=== PATIENT | female | born 1960 | race Caucasian/White ===

== ENCOUNTER 2019-06-07 11:32 | Emergency (ER) | payer OTHER ==
[2019-06-07 11:41] VITALS: BMI 22.6
--- NOTE | 2019-06-07 12:50 | PDOC ---
History of Present Illness - General Chief Complaint: Blood Pressure Problem Stated Complaint: HEADACHES VOMITING Time Seen by Provider: 06/07/19 12:05 History Source: Patient Exam Limitations: No Limitations - History of Present Illness Initial Comments: HPI: 59 y/o female presenting to [facility] ER complaining of diffuse bilateral headache radiating from the forehead to the neck. Woke the pt from sleep this morning, and has continued to worsen in intensity. No photo or phonophobia. No change in vision. Denies trauma to the head or neck. Denies a history of chronic headaches , but pt describes a similar headache 7 years ago that improved after undergoing "a needle in the spine" at [place]. Experienced a change in vision with that episode. Pt is unable to recall the diagnosis made at that time. Was not placed on any maintenance medications. Endorses nausea without vomiting. Did not take any OTC pain medication prior to arrival. Medical Hx: - HTN Review of Systems: In addition to that documented in the HPI above, the additional ROS was obtained : Constitutional- Denies fevers or chills Head- Denies vision or hearing changes ENMT- Denies sore throat CV- Denies chest pain Resp- Denies SOB GI- Denies vomiting or diarrhea - Denies painful urination MSK- Denies recent trauma Skin- Denies new rashes Neuro- Denies difficulty walking, new numbness, or tingling Endocrine- Denies polyuria Heme- Denies bleeding or bruising Physical Examination: Vital signs and nursing notes reviewed. Constitutional- Well-developed, well-nourished adult female in no acute distress but mild obvious discomfort. Found semi-fowlers on hospital bed. Head- Normocephalic. No obvious external signs of trauma. No tenderness to palpation. Eyes- Pupils 3mm and PERRL bilaterally. EOMI. Sclerae white. Conjunctiva moist and not injected. Ears- Hearing grossly intact. Nose- No nasal discharge. Neck- Supple, trachea is midline. No c-spine tenderness. Cardiovascular / Chest- Regular rate and regular rhythm. No murmur, rubs, clicks , or gallops. Peripheral pulses- radial pulses full. Respiratory- Breathing unlabored. Equal chest rise and fall. Clear to auscultation bilaterally. No stridor, no wheezing, no rhonchi. Gastrointestinal- abdomen is soft, non-tender, non-distended. Neuro- Alert and oriented x4. Moving all four extremities spontaneously. No facial asymmetry. No slurred speech. No focal deficits. Sensation to all four extremities intact. No nuchal rigidity. Skin- Warm, dry, and intact. Psych- Affect- appropriate. Mood- normal. Speech was non-labored, non- pressured. MDM: 59 y/o female presenting with worsening diffuse headache in setting of possible pseudotumor cerebri diagnosis without active treatment. Afebrile. Vitals unremarkable for hypotension or tachycardia. Physical exam as described above. Low suspicion for meningitis without infectious symptoms. Low suspicion for SAH , but will eval w/ HCT. Symptoms started within 6 hours. D/D also includes but not limited to pseudotumor cerebri vs tension headache. Ordered Tylenol and Reglan for symptom relief. HCT unremarkable for evidence of hemorrhage. Noted mild ventricular enlargement that was not noted on prior HCT dated 18 July 2010. Pt reassessed and reports her headache has almost completely resolved. Discussed results of todays visit, as well as need for lumbar puncture to measure opening pressure. Pt declined the procedure. Further discussed risks and benefits of the procedure, and possibility of blindness as complication of untreated pseudotumor cerebri. Pt again declined. Pt attempted unsuccessfully to obtain the records from [facility]. Answered all questions. Provided return precautions. Pt expressed verbal understanding and agreement with plan to discharge home with outpatient neurology follow up. Provided copies of todays results and neuro clinic referral. Tavares Rodas M.D., PGY2 Emergency Medicine Resident Past History - Past Medical History Allergies/Adverse Reactions: Allergies Allergy/AdvReac Type Severity Reaction Status Date / Time No Known Allergies Allergy Verified 06/07/19 11:41 Home Medications: Ambulatory Orders Atorvastatin Ca [Lipitor] 40 mg PO DAILY 06/07/19 Metoprolol Succinate [Toprol Xl] 50 mg PO DAILY 06/07/19 COPD: No HTN: Yes - Psycho Social/Smoking Cessation Hx Smoking Status: No Smoking History: Never smoked Number of Cigarettes Smoked Daily: 0 Information on smoking cessation initiated: No Hx Alcohol Use: No Drug/Substance Use Hx: No *Physical Exam - Vital Signs Last Vital Signs Temp Pulse Resp BP Pulse Ox 97.6 F 60 19 144/93 98 06/07/19 11:40 06/07/19 11:40 06/07/19 11:40 06/07/19 11:40 06/07/19 11:40 ED Treatment Course - LABORATORY CBC & Chemistry Diagram: 06/07/19 12:35 06/07/19 12:35 Discharge - Discharge Information Problems reviewed: Yes Clinical Impression/Diagnosis: Headache Qualifiers: Headache type: unspecified Headache chronicity pattern: acute headache Intractability: not intractable Qualified Code(s): R51 - Headache Condition: Improved Disposition: HOME - Admission No - Follow up/Referral Referrals: Mick Rebolledo MD [Primary Care Provider] - Sudhir Omalley MD [Staff Physician] - - Patient Discharge Instructions Patient Printed Discharge Instructions: DI for Headache Additional Instructions: You were seen today for a headache. Your symptoms improved after receiving Tylenol and Reglan. Your head CT and blood work were normal today. Your symptoms may be related to a disorder called Pseudotumor Cerebri. You declined to have a lumbar puncture performed to adequately test for this disorder. You may have this disorder based on your description of events at [facility] 7 years ago. A halfway complication of not treating this disorder is blindness. YOU NEED TO DISCUSS THIS WITH A NEUROLOGIST SOON POSSIBLE. You can take over the counter Tylenol or Advil as needed for pain. Take as directed on the package insert. Do not exceed the recommended dosage. Be sure to stay well hydrated over the next several days. Follow up with a neurologist as soon as possible. I have entered a referral for you to see Dr. Omalley. You will need to call to make an appointment. The number is included in this packet. A copy of todays results are attached to this packet. Take it to the appointment so the doctor can review them. You can also follow up with your primary care doctor. You will need to call to make an appointment. The number is included in this packet. A copy of todays results are attached to this packet. Take it to the appointment so your doctor can review them. Go to the nearest emergency department if your condition worsens or you feel like you need additional emergency evaluation. Print Language: BURUNDIAN - Post Discharge Activity Work/Back to School Note: Back to Work
[2019-06-07] MEDS ORDERED: ACETAMINOPHEN 325 MG TABLET (FP) PO ONE (12:51)
[2019-06-07] MEDS ORDERED: METOCLOPRAMIDE HCL INJECTION 10 MG/2 ML VIAL IVPUSH ONE (12:51)
[2019-06-07] MEDS ORDERED: METOCLOPRAMIDE HCL INJECTION 10 MG/2 ML VIAL ONE (12:59)
[2019-06-07] MEDS ORDERED: ACETAMINOPHEN 325 MG TABLET (FP) ONE (12:59)
--- NOTE | 2019-06-07 14:01 | PDOC ---
Documentation entered by Michelle Forrester SCRIBE, acting as scribe for Roberto Carlos Severino MD. Roberto Carlos Severino MD: This documentation has been prepared by the Usama fitzpatrick Adrianna, SCRIBE, under my direction and personally reviewed by me in its entirety. I confirm that the documentation accurately reflects all work, treatment, procedures, and medical decision making performed by me. Attending Attestation - Resident Resident Name: RodasTavares - ED Attending Attestation I have performed the following: I have examined & evaluated the patient, The case was reviewed & discussed with the resident, I agree w/resident's findings & plan, Exceptions are as noted - HPI HPI: The patient is a 59 year old female, with a significant PMH of pseudotumor cerebri and HTN, who presents to the ED for evaluation of headache since this morning. Patient complains of diffuse bilateral headache that radiates into her forehead and her neck. She endorses associated nausea and vomit. Denies changes in vision, trauma to the head, or photophobia. Allergies: NKA, NIKDA Surgical History: None reported Social History: No toxic habits - Physicial Exam PE: 06/07/19 13:57 EXAMINATION CONSTITUTIONAL: Awake and alert, well-nourished, in mild distress HEAD: Normocephalic; atraumatic EYES: PERRL; EOM intact; No nystagmus NECK: Supple; non-tender; no cervical lymphadenopathy NEURO: Cranial nerves II through XII grossly intact; motor is five 5 x 4; gait is stable. - Medical Decision Making 06/07/19 14:00 Patient is 59-year-old female with history of pseudotumor cerebri (currently not on Diamox), presents with a diffuse headache associated with nausea and vomiting but without associated photo/phonophobia. In the ER, patient is afebrile, nontoxic-appearing, with no evidence of meningismus. Differential diagnosis includes intracerebral hemorrhage versus migraine versus worsening ICP versus tension headache. Will administer pain meds, will obtain CT of head to rule out intracranial hemorrhage. Will consider LP. Will reassess.
[2019-06-07 14:59] LABS: BASO % 0.6 % (0-2.0); EOS % 0.5 % (0-4.5); HEMATOCRIT 35.8 % (32.4-45.2); HEMOGLOBIN 11.8 GM/dL (10.7-15.3); LYMPH % 20.6 % (8-40); MCH 27.9 pg (25.7-33.7); MCHC 32.9 g/dl (32.0-36.0); MEAN CELL VOLUME 84.9 fl (80-96); MEAN PLT VOLUME 12.2 fl (7.5-11.1); MONO % 4.1 % (3.8-10.2); NEUT % 74.2 % (42.8-82.8); PLATELET COUNT 253 K/MM3 (134-434); RBC 4.22 M/mm3 (3.60-5.2); RDW 13.7 % (11.6-15.6); WHITE BLOOD COUNT 8.5 K/mm3 (4.0-10.0)
[2019-06-07 15:11] LABS: ALBUMIN 3.4 g/dl (3.4-5.0); BILIRUBIN,TOTAL 0.3 mg/dL (0.2-1); CALCIUM 9.2 mg/dL (8.5-10.1); CREATININE 0.8 mg/dL (0.55-1.3); POTASSIUM 4.1 mmol/L (3.5-5.1); TOT PROT 7.6 g/dl (6.4-8.2)
[2019-06-07 15:21] LABS: INR 0.94 (0.83-1.09); PROTHROMBIN TIME (PATIENT) 11.1 SEC (9.7-13.0)
[2019-06-07 15:24] LABS: ACTIVATED PTT 34.2 SECONDS (25.2-36.5)
[2019-06-07 15:56] VITALS: BP 108/70; PULSE 54; TEMP 98
--- NOTE | 2019-06-13 10:35 | EKG ---
Test Reason : Blood Pressure : / mmHG Vent. Rate : 059 BPM Atrial Rate : 059 BPM P-R Int : 174 ms QRS Dur : 070 ms QT Int : 432 ms P-R-T Axes : 055 -13 014 degrees QTc Int : 427 ms SINUS BRADYCARDIA OTHERWISE NORMAL ECG WHEN COMPARED WITH ECG OF 10-NOV-2004 09:21, NO SIGNIFICANT CHANGE WAS FOUND Confirmed by Adam Mary MD ([id number]) on 06/13/2019 10:34:47 AM Referred By: Confirmed By:Adam Mary MD
== END 2019-06-07 16:26 | disposition home or self-care (01) ==
LOC: JER 11:32 → SUPCPDRO 11:32 → JER 16:26
PROC: 3E033GC Introduction of Other Therapeutic Substance into Peripheral Vein, Percutaneous Approach (ICD-10-PCS; principal; 2019-06-07)
DX: R51 Headache (principal); I10 Essential (primary) hypertension
CPT/HCPCS: 36415; 70450-TC; 80053; 85025; 85610; 85730; 93005; 93010; 99285-25

== ENCOUNTER 2019-10-23 14:07 | Observation (INO) | payer OTHER ==
[2019-10-23 14:34] VITALS: BMI 21.6
--- NOTE | 2019-10-23 14:34 | PDOC ---
Rapid Medical Evaluation Chief Complaint: Nausea/Vomiting Time Seen by Provider: 10/23/19 14:30 Medical Evaluation: Allergies Allergy/AdvReac Type Severity Reaction Status Date / Time No Known Allergies Allergy Verified 06/07/19 11:41 10/23/19 14:31 I have performed a brief in-person evaluation of this patient. The patient presents with a chief complaint of: sudden onset of N/V , dizziness and sweats since 30mins ago Pertinent physical exam findings: patient weak actively vomiting in waiting room I have ordered the following: EKG, cmp, CBC, cardiac profile The patient will proceed to the ED for further evaluation. Discharge Disposition - Diagnosis Dizziness, Nausea & vomiting - Discharge Dispostion Condition at time of disposition: Fair - Referrals - Patient Instructions - Post Discharge Activity
[2019-10-23] MEDS ORDERED: SODIUM CHLORIDE 1,000 ML IV STA (14:35)
[2019-10-23 15:28] LABS: BASO % 0.4 % (0-2.0); EOS % 0.5 % (0-4.5); HEMATOCRIT 36.6 % (32.4-45.2); HEMOGLOBIN 11.8 GM/dL (10.7-15.3); LYMPH % 21.2 % (8-40); MCH 27.4 pg (25.7-33.7); MCHC 32.2 g/dl (32.0-36.0); MEAN PLT VOLUME 11.1 fl (7.5-11.1); MONO % 4.1 % (3.8-10.2); NEUT % 73.8 % (42.8-82.8); PLATELET COUNT 248 K/MM3 (134-434); RDW 14.5 % (11.6-15.6); WHITE BLOOD COUNT 9.3 K/mm3 (4.0-10.0)
--- NOTE | 2019-10-23 15:38 | PDOC ---
History of Present Illness - General Chief Complaint: Nausea/Vomiting Stated Complaint: NAUSEA/VOMITING Time Seen by Provider: 10/23/19 14:30 History Source: Patient, Family Exam Limitations: No Limitations - History of Present Illness Initial Comments: 10/23/19 15:37 59F PMH HTN, HLD, polymyositis presenting with sudden onset dizziness, diaphoresis, weakness, nausea, and vomiting shortly after getting out of car. No LOC. Endorses mild epigastric pain x 3 days. Denies f/c, cp, palpitations, headache, changes in vision/hearing, sob, cough, sore throat, runny nose. Endorses eating breakfast and having adequate fluid intake. NKDA. On metoprolol and zetia w/o recent changes in dosage. Denies etoh, tobacco, illicit drugs. Past History - Medical History Allergies/Adverse Reactions: Allergies Allergy/AdvReac Type Severity Reaction Status Date / Time No Known Allergies Allergy Verified 06/07/19 11:41 Home Medications: Ambulatory Orders Atorvastatin Ca [Lipitor] 40 mg PO DAILY 06/07/19 Metoprolol Succinate [Toprol Xl] 50 mg PO DAILY 06/07/19 COPD: No HTN: Yes - Psycho-Social/Smoking History Smoking Status: No Smoking History: Never smoked Have you smoked in the past 12 months: No Number of Cigarettes Smoked Daily: 0 Information on smoking cessation initiated: No - Substance Abuse Hx (Audit-C & DAST Scrn) How often the patient has a drink containing alcohol: Never Score: In Men: 4 or > Positive; In Women: 3 or > Positive: 0 Screen Result (Pos requires Nsg. Audit-10AR): Negative In the last yr the pt used illegal drug/Rx for NonMed reason: No Score: Yes response is considered Positive: 0 Screen Result (Positive result requires Nsg. DAST-10): Negative Review of Systems - Review of Systems Able to Perform ROS?: Yes Comments:: 10/24/19 00:17 CONSTITUTIONAL: Denies F / C HEENT: endorses dizziness. Denies headache, changes in vision / hearing, diplopia, blurry vision, sore throat, rhinorrhea RESP: Denies SOB, cough, orthopnea, FREDERICK CARD: Denies chest pain, palpitations GI: endorses epigastric discomfort. endorses n/v. Denies diarrhea, abdominal pain, bloody stool, inability to tolerate PO : Denies dysuria, hematuria, frequency NEURO: Denies numbness, tingling, weakness MSK: Denies neck or back pain SKIN: Denies rashes *Physical Exam - Vital Signs Last Vital Signs Temp Pulse Resp BP Pulse Ox 97.3 F L 55 L 17 116/74 90 L 10/23/19 14:08 10/23/19 14:08 10/23/19 14:08 10/23/19 14:08 10/23/19 14:08 - Physical Exam 10/24/19 00:17 GEN: fatigued but NAD. AAOx3. HEENT: NC/AT, EOMI. No facial asymmetry. Normal voice. Supple neck w/ FROM. CV: S1/S2, RRR, no m/r/g LUNG: SaO2 bernard 89% on RA, bibasilar crackles, no wheezes GI: Mild epigastric tenderness o/w soft, ndnt, +BS, no guarding, no rebound. MSK: 2+ distal pulses. No LE edema. No obvious deformities of all extremities. SKIN: Warm, dry, no rashes appreciated. PSYCH: Normal mood and affect. NEURO: Moving all extremities well. ED Treatment Course - LABORATORY CBC & Chemistry Diagram: 10/23/19 15:07 10/23/19 15:07 - ADDITIONAL ORDERS Additional order review: Laboratory Results 10/23/19 10/23/19 15:28 15:15 POC Glucometer 98 102 10/23/19 10/23/19 15:28 15:15 POC Glucometer 98 102 Medical Decision Making - Medical Decision Making 10/24/19 00:17 59F p/w near-syncope. SaO2 89% RA, Bradycardic in mid 50s. No chest sx. DDX - syncope / vasovagal, ACS, CHF, PNA, covid - cbc, cmp, cardiac, d-dimer, bnp - EKG 14:35 Sinus bradycardia at rate of 51; QTc 462. No LAYLA/D. Diffusely flat T waves. - cxr - 2L NC - NS - covid swab - admit dw Dr. Pola Rebolledo - admit under him after workup; patient has missed several recent appointments 10/23/19 16:18 labs reviewed endorsed to Dr. Rebolledo for admission Discharge - Discharge Information Problems reviewed: Yes Clinical Impression/Diagnosis: Dizziness, Nausea & vomiting, Syncope, near, Bradycardia Condition: Fair - Admission Yes - Follow up/Referral - Patient Discharge Instructions - Post Discharge Activity
[2019-10-23 16:04] LABS: ALBUMIN 3.9 g/dl (3.4-5.0); ALK PHOS 80 U/L (45-117); ANION GAP 7 MMOL/L (8-16); BILIRUBIN,TOTAL 0.4 mg/dL (0.2-1); BLOOD UREA NITROGEN 16.9 mg/dL (7-18); CALCIUM 9.5 mg/dL (8.5-10.1); CHLORIDE 104 mmol/L (98-107); CO2 29 mmol/L (21-32); GLUCOSE,RANDOM 114 mg/dL (74-106); POTASSIUM 4.5 mmol/L (3.5-5.1); SGOT/AST 21 U/L (15-37); SGPT/ALT 30 U/L (13-61); SODIUM 140 mmol/L (136-145); TOT PROT 8.2 g/dl (6.4-8.2)
--- NOTE | 2019-10-23 16:11 | PDOC ---
Attending Attestation - Resident Resident Name: Nicholas Schuster - ED Attending Attestation I have performed the following: I have examined & evaluated the patient, The case was reviewed & discussed with the resident, I agree w/resident's findings & plan - HPI HPI: 10/23/19 16:09 59F PMH HTN, HLD, polymyositis presenting with sudden onset dizziness, diaphoresis, weakness, nausea, and vomiting shortly after getting out of car. No LOC. Endorses mild epigastric pain x 3 days. Denies f/c, cp, palpitations, headache, changes in vision/hearing, sob, cough, sore throat, runny nose. Endorses eating breakfast and having adequate fluid intake. NKDA. On metoprolol and zetia w/o recent changes in dosage. Denies etoh, tobacco, illicit drugs. - Physicial Exam PE: 10/23/19 16:09 Agree with the resident's HPI and PE as documented in the electronic medical record. NAD, malaised appearing, EOMI, PERRL, nl conjunctiva, anicteric; neck supple. lungs clear, no respiratory distress. RRR, abdomen soft nontender. no rebound, guarding. Back nontender. VENEGAS x4, no focal neuro deficits. No peripheral edema. normal color for ethnicity, WWP. no calf tenderness. 10/23/19 16:57 - Medical Decision Making 10/23/19 16:09 Vital Signs Temp Pulse Resp BP Pulse Ox 97.3 F L 53 L 17 139/91 100 10/23/19 14:08 10/23/19 15:53 10/23/19 14:08 10/23/19 15:53 10/23/19 15:53 vitals reviewed, bradycardic HD appropriate no fever sats initially 90% on ra, good waveform, in the 80s, on supp O2. DDx SOB: ACS, PE, PTX, CHF, COPD exac, pulmonary edema, pleurisy, pneumonia, viral syndrome. effusion. anemia, electrolyte/metabolic derangements. Interpreted by ED Physician: CXR (1 view): no acute abnormality: no infiltrates, bones appear intact and structures normal alignment, cardiac silhouette within normal limits. no free air under diaphragm, no pneumothorax. EKG sinus bradycardia, no interval abnormalities, narrow QRS, ST and T wave segments and morphology normal. Nonspecific T wave abnormalities, wells score_zero. dimer is neg, so reassuring, low likelihood of PE so unlikely labs and lytes wnl trop is neg, reassuring covid swab repeat trop/serials and EKG, tele monitor weaned off O2, no longer hypoxic on reassessment, off O2 and sats 99-100% RA admit to Dr Glenn Rebolledo, for bradycardia, r/o ACS, atypical sx, close monitoring and tele, medical management 10/23/19 16:13 10/23/19 16:57 10/23/19 16:59 Heart Score/ECG Review #1 ECG reviewed & interpreted by me at: 14:35 General ECG Interpretation: Sinus Rhythm 10/23/19 16:58 EKG sinus bradycardia 51 bpm, no interval abnormalities, narrow QRS, ST and T wave segments and morphology normal. Nonspecific T wave abnormalities at 1435 Discharge - Discharge Information Problems reviewed: Yes Clinical Impression/Diagnosis: Dizziness, Nausea & vomiting, Syncope, near, Bradycardia Condition: Fair - Admission Yes - Follow up/Referral - Patient Discharge Instructions - Post Discharge Activity
[2019-10-23] MEDS ORDERED: EZETIMIBE 10 MG TABLET (FP) PO ONE (16:58)
[2019-10-23] MEDS: SODIUM CHLORIDE 1,000 ML IV SCH (19:03)
[2019-10-23 19:24] LABS: URINE APPEARANCE CLEAR; URINE BILIRUBIN NEGATIVE (NEGATIVE); URINE COLOR YELLOW; URINE GLUCOSE (UA) NEGATIVE (NEGATIVE); URINE KETONE NEGATIVE (NEGATIVE); URINE LEUK ESTERASE NEGATIVE (NEGATIVE); URINE NITRITE NEGATIVE (NEGATIVE); URINE PROTEIN NEGATIVE (NEGATIVE); URINE UROBILINOGEN 0.2 mg/dL (0.2-1.0)
[2019-10-23] MEDS ORDERED: ACETAMINOPHEN 500 MG TABLET (FP) PO ONE (20:37)
[2019-10-23] MEDS ORDERED: ACETAMINOPHEN 325 MG TABLET (FP) ONE (20:50)
[2019-10-24 06:35] LABS: BASO % 0.5 % (0-2.0); EOS % 0.8 % (0-4.5); HEMATOCRIT 34.8 % (32.4-45.2); HEMOGLOBIN 11.2 GM/dL (10.7-15.3); LYMPH % 28.1 % (8-40); MCH 27.4 pg (25.7-33.7); MCHC 32.2 g/dl (32.0-36.0); MEAN CELL VOLUME 85.2 fl (80-96); MEAN PLT VOLUME 11.1 fl (7.5-11.1); NEUT % 65.6 % (42.8-82.8); PLATELET COUNT 238 K/MM3 (134-434); RBC 4.09 M/mm3 (3.60-5.2); RDW 14.4 % (11.6-15.6); WHITE BLOOD COUNT 8.5 K/mm3 (4.0-10.0)
[2019-10-24 07:11] LABS: ALBUMIN 3.4 g/dl (3.4-5.0); BILIRUBIN,TOTAL 0.4 mg/dL (0.2-1); BLOOD UREA NITROGEN 14.7 mg/dL (7-18); CALCIUM 8.8 mg/dL (8.5-10.1); CREATININE 0.8 mg/dL (0.55-1.3); POTASSIUM 4.6 mmol/L (3.5-5.1); TOT PROT 7.4 g/dl (6.4-8.2)
--- NOTE | 2019-10-24 08:57 | CON.CARD ---
Consult Consult Specialty:: Cardiology Referred by:: Kesha Escalona - History of Present Illness History of Present Illness: The patient is a 59-year-old female with a history of hypertension, hyperlipidemia, polymyositis, now admitted with near syncope. The patient was inside her car. She attempted to get out of the car when she became dizzy, diaphoretic. The patient was helped to a bench by a stranger. Her symptoms persisted. She developed nausea and vomiting. The patient denied chest pains or shortness of breath. No palpitations. Also denied fever, chills, cough. The patient is quite comfortable this morning. She stated that she is back to her usual. The patient denied prior such episodes. She stated that she has been doing quite well. She was feeling well prior to getting into the car. - History Source History Provided By: Patient, Medical Record Limitations to Obtaining History: No Limitations - Past Medical History Cardio/Vascular: Yes: HTN, Hyperlipdemia ...: No - Alcohol/Substance Use Hx Alcohol Use: No - Smoking History Smoking history: Former smoker Have you smoked in the past 12 months: No Aproximately how many cigarettes per day: 0 If you are a former smoker, when did you quit?: 25 years ago Home Medications - Allergies Allergies/Adverse Reactions: Allergies Allergy/AdvReac Type Severity Reaction Status Date / Time No Known Allergies Allergy Verified 10/24/19 08:29 - Home Medications Home Medications: Ambulatory Orders Atorvastatin Ca [Lipitor] 40 mg PO DAILY 06/07/19 Metoprolol Succinate [Toprol Xl] 50 mg PO DAILY 06/07/19 Review of Systems - Review of Systems Constitutional: reports: No Symptoms Eyes: reports: No Symptoms HENT: reports: No Symptoms Neck: reports: No Symptoms Cardiovascular: reports: No Symptoms Respiratory: reports: No Symptoms Gastrointestinal: reports: No Symptoms Genitourinary: reports: No Symptoms Breasts: reports: No Symptoms Reported Musculoskeletal: reports: No Symptoms Integumentary: reports: No Symptoms Neurological: reports: No Symptoms Hematology/Lymphatic: reports: No Symptoms Psychiatric: reports: No Symptoms Vital Signs: Vital Signs Temperature 98.1 F 10/24/19 05:50 Pulse Rate 68 10/24/19 05:50 Respiratory Rate 20 10/24/19 05:50 Blood Pressure 131/74 10/24/19 05:50 O2 Sat by Pulse Oximetry (%) 100 07/14/20 01:14 Constitutional: Yes: Well Nourished, No Distress, Calm Eyes: Yes: WNL, Conjunctiva Clear, EOM Intact, Occular Prosthesis HENT: Yes: WNL, Atraumatic, Normocephalic Neck: Yes: WNL, Supple, Trachea Midline Respiratory: Yes: WNL, Regular, CTA Bilaterally Gastrointestinal: Yes: WNL, Normal Bowel Sounds, Soft Renal/: Yes: WNL Cardiovascular: Yes: WNL, Regular Rate and Rhythm JVD: No Carotid Bruit: No PMI: Non-Displaced Heart Sounds: Yes: S1, S2 Murmur: Yes: Grade 2 Musculoskeletal: Yes: WNL Extremities: Yes: WNL Edema: No Peripheral Pulses WNL: Yes Peripheral Pulses: 2+ Left Carotid, 2+ Right Carotid, 2+ Left Femoral, 2+ Right Femoral, 2+ Left Popliteal, 2+ Right Popliteal, 2+ Left Doralis Pedis, 2+ Right Dorsalis Pedis Integumentary: Yes: WNL Neurological: Yes: WNL, Alert, Oriented ...Motor Strength: WNL Psychiatric: Yes: WNL, Alert, Oriented - Other Data Labs, Other Data: CBC, BMP 10/24/19 05:58 10/24/19 05:58 Troponin, BNP 10/23/19 10/23/19 15:07 18:36 Troponin I < 0.02 < 0.02 B-Natriuretic Peptide 52.0 Troponin, BNP 10/23/19 10/23/19 15:07 18:36 Troponin I < 0.02 < 0.02 B-Natriuretic Peptide 52.0 Assessment/Plan The patient is a 59-year-old female with a history of hypertension, hyperlipide wolfgang, polymyositis, now admitted with near syncope. The patient was inside her car. She attempted to get out of the car when she became dizzy, diaphoretic. The patient was helped to a bench by a stranger. Her symptoms persisted. She developed nausea and vomiting. The patient denied chest pains or shortness of breath. No palpitations. Also denied fever, chills, cough. The patient is quite comfortable this morning. She stated that she is back to her usual. The patient denied prior such episodes. She stated that she has been doing quite well. She was feeling well prior to getting into the car. There is no evidence of ischemia nor acute coronary syndrome. No CHF. Sinus rhythm on telemetry. No arrhythmias documented. I suspect vasovagal event. The patient is doing well and is back to her normal. I believe that the patient may safely go home for outpatient follow-up. Please arrange for an outpatient follow-up with Dr. Meza within 2 weeks. There is no need for further inpatient cardiac work-up. Please do not hesitate to call us PRN.
--- NOTE | 2019-10-24 10:05 | EKG ---
Test Reason : Blood Pressure : / mmHG Vent. Rate : 048 BPM Atrial Rate : 048 BPM P-R Int : 172 ms QRS Dur : 080 ms QT Int : 492 ms P-R-T Axes : 053 -21 -11 degrees QTc Int : 439 ms SINUS BRADYCARDIA NONSPECIFIC T WAVE ABNORMALITY ABNORMAL ECG Confirmed by MD SILVIA, CALIN ([id number]) on 10/24/2019 10:05:30 AM Referred By: Confirmed By:CALIN VEGA MD
--- NOTE | 2019-10-24 10:07 | EKG ---
Test Reason : Blood Pressure : / mmHG Vent. Rate : 051 BPM Atrial Rate : 051 BPM P-R Int : 170 ms QRS Dur : 070 ms QT Int : 502 ms P-R-T Axes : 039 -27 025 degrees QTc Int : 462 ms SINUS BRADYCARDIA LEFT ATRIAL ENLARGEMENT NONSPECIFIC T WAVE ABNORMALITY PROLONGED QT ABNORMAL ECG Confirmed by MD SILVIA, CALIN ([id number]) on 10/24/2019 10:06:49 AM Referred By: Confirmed By:CALIN VEGA MD
--- NOTE | 2019-10-24 10:36 | HP ---
Admitting History and Physical - Admission History of Present Illness: pt states as she was getting out of car she hanna coronel headed a lady helpedcher to bench she denied sob cp bluury vision diahporesis palpitations nor headach all sympsyoms started yesterday now c/o mid abd pain orquidea denies constipation diaerea History Source: Patient Limitations to Obtaining History: No Limitations - Past Medical History Cardiovascular: Yes: HTN, Hyperlipdemia Gastrointestinal: Yes: GERD, Other (mid pain to deep palp) ...: No Rheumatology: Yes: Other (polymyitis) - Smoking History Smoking history: Former smoker Have you smoked in the past 12 months: No Aproximately how many cigarettes per day: 0 If you are a former smoker, when did you quit?: 25 years ago - Alcohol/Substance Use Hx Alcohol Use: No Home Medications - Allergies Allergies/Adverse Reactions: Allergies Allergy/AdvReac Type Severity Reaction Status Date / Time No Known Allergies Allergy Verified 10/24/19 08:29 - Home Medications Home Medications: Ambulatory Orders Atorvastatin Ca [Lipitor] 40 mg PO DAILY 06/07/19 Metoprolol Succinate [Toprol Xl] 50 mg PO DAILY 06/07/19 Family Medical History Family History: Unremarkable Review of Systems - Review of Systems Constitutional: reports: Other (nasea abd pain scale 3) Eyes: reports: No Symptoms HENT: reports: No Symptoms, Ocular Prosthesis Cardiovascular: reports: No Symptoms Respiratory: reports: No Symptoms Gastrointestinal: reports: Nausea Genitourinary: reports: No Symptoms Breasts: reports: No Symptoms Reported Musculoskeletal: reports: Muscle Weakness, Other (abhijeet hip pain chronic) Neurological: reports: No Symptoms, Weakness Endocrine: reports: Unexplained Weight Gain Physical Examination Vital Signs: Vital Signs Temperature 98.3 F 10/24/19 09:12 Pulse Rate 59 L 10/24/19 09:12 Respiratory Rate 18 10/24/19 09:12 Blood Pressure 144/90 10/24/19 09:12 O2 Sat by Pulse Oximetry (%) 100 10/24/19 01:14 Constitutional: Yes: Well Nourished Eyes: Yes: WNL HENT: Yes: WNL, Tonsillar Exudate Cardiovascular: Yes: Bradycardia Respiratory: Yes: WNL Gastrointestinal: Yes: Tenderness, Epigastrium ...Rectal Exam: Yes: WNL Renal/: Yes: WNL Breast(s): Yes: WNL Musculoskeletal: Yes: Muscle Weakness, Other (abhijeet hip psain) Edema: No Peripheral Pulses WNL: Yes Integumentary: Yes: WNL Neurological: Yes: WNL ...Motor Strength: WNL Psychiatric: Yes: WNL Labs: CBC, BMP 10/24/19 05:58 10/24/19 05:58 Assessment/Plan sono abd ppi tx chk pulse q 6 hrs ? d/c in am ckh covid oob cont as is ?d/c or lower iv
--- NOTE | 2019-10-24 12:12 | ECHO ---
Version: 1 Name: [facility] CASE Exam: Adult Echocardiogram Study Date: 10/24/2019, 11:26 AM Age: 59 Years MMode/2D Measurements & Calculations IVSd: 0.98 cm LVIDs: 2.6 cm LVIDd: 3.8 cm LVPWd: 0.96 cm LAV (MOD-bp): 56.0 ml ACS: 1.69 cm Ao root diam: 2.38 cm LVOT diam: 1.82 cm LA dimension: 3.3 cm Doppler Measurements & Calculations MV E max jourdan: 88.8 cm/sec Med E/e': 11.5 MV A max jourdan: 93.8 cm/sec Med Peak E' Jourdan: 7.7 cm/sec MV E/A: 0.95 Lat E/e': 12.0 Lat Peak E' Jourdan: 7.4 cm/sec Ao max P.0 mmHg MEGAN(I,D): 1.91 cm Ao mean P.3 mmHg LV V1 mean: 66.7 cm/sec Ao V2 max: 141.2 cm/sec LV V1 mean P.14 mmHg TR max jourdan: 206.3 cm/sec TR max P.2 mmHg Left Ventricle The left ventricular size, thickness and function are normal. Ejection Fraction = 60-65%. The transm itral spectral Doppler flow pattern is suggestive of impaired LV relaxation. No regional wall motion abnor malities noted. Right Ventricle The right ventricle is normal in size and function. Atria Normal left and right atrial size and function. Mitral Valve The mitral valve is normal. There is mild mitral regurgitation. Tricuspid Valve The tricuspid valve is normal in structure and function. There is trace tricuspid regurgitation. The re was insufficient TR detected to calculate RV systolic pressure. Aortic Valve The aortic valve is normal in structure and function. Pulmonic Valve The pulmonic valve is not well visualized. Great Vessels The aortic root is normal size. Pericardium/Pleura There is no pericardial effusion. Summary Statements The left ventricular size, thickness and function are normal. Ejection Fraction = 60-65%. The right ventricle is normal in size and function. The mitral valve is normal. There is mild mitral regurgitation. The aortic valve is normal in structure and function. MD Germania Velazquez10/24/2019, 12:11 PM Ordering Physician: Mick Rebolledo Performed By: Padmini Koch
[2019-10-24 14:25] LABS: BLOOD UREA NITROGEN 12.9 mg/dL (7-18); CREATININE 0.8 mg/dL (0.55-1.3)
[2019-10-24] MEDS: SODIUM CHLORIDE 1,000 ML IV SCH (21:26)
[2019-10-25 06:39] LABS: BASO % 0.6 % (0-2.0); EOS % 1.3 % (0-4.5); HEMATOCRIT 33.1 % (32.4-45.2); HEMOGLOBIN 10.9 GM/dL (10.7-15.3); LYMPH % 33.7 % (8-40); MCH 27.9 pg (25.7-33.7); MEAN CELL VOLUME 84.6 fl (80-96); MEAN PLT VOLUME 11.2 fl (7.5-11.1); MONO % 4.7 % (3.8-10.2); NEUT % 59.7 % (42.8-82.8); PLATELET COUNT 226 K/MM3 (134-434); RBC 3.92 M/mm3 (3.60-5.2); RDW 14.3 % (11.6-15.6); WHITE BLOOD COUNT 7.2 K/mm3 (4.0-10.0)
[2019-10-25] MEDS ORDERED: PANTOPRAZOLE 40 MG TABLET PO SCH (10:00)
[2019-10-25 13:39] VITALS: BP 131/76; PULSE 69; TEMP 98.4
--- NOTE | 2019-10-25 14:14 | DS ---
Physical Examination Vital Signs: Vital Signs Temperature 98.4 F 10/25/19 13:38 Pulse Rate 69 10/25/19 13:38 Respiratory Rate 18 10/25/19 13:38 Blood Pressure 131/76 10/25/19 13:38 O2 Sat by Pulse Oximetry (%) 99 10/25/19 10:00 Constitutional: Yes: Well Nourished Eyes: Yes: WNL HENT: Yes: WNL, Tonsillar Exudate Neck: Yes: Rigid Respiratory: Yes: WNL Gastrointestinal: Yes: WNL ...Rectal Exam: Yes: WNL Renal/: Yes: WNL Breast(s): Yes: WNL Musculoskeletal: Yes: WNL Extremities: Yes: WNL Edema: No Peripheral Pulses WNL: Yes Neurological: Yes: WNL ...Motor Strength: WNL Psychiatric: Yes: WNL Labs: CBC, BMP 10/25/19 06:05 10/24/19 13:44 Discharge Summary Problems reviewed: Yes Reason For Visit: PRE SYNCOPE Current Active Problems Bradycardia (Acute) Dizziness (Acute) Nausea & vomiting (Acute) Syncope, near (Acute) Condition: Good - Instructions Diet, Activity, Other Instructions: appt w wednesday 1200 noon cont all meds at home miralax out pt Referrals: Mick Rebolledo MD [Primary Care Provider] - Disposition: HOME - Home Medications Comprehensive Discharge Medication List: Ambulatory Orders Atorvastatin Ca [Lipitor] 40 mg PO DAILY 06/07/19 Metoprolol Succinate [Toprol Xl] 50 mg PO DAILY 06/07/19
== END 2019-10-25 14:44 | disposition home or self-care (01) ==
LOC: JER 14:07 → JERBED 16:49 → INTOOBSV 16:49 → J4S 10-24 00:22
PROVIDERS: ADMIT Family Medicine; ATTEND Family Medicine
PROC: 3E0337Z Introduction of Electrolytic and Water Balance Substance into Peripheral Vein, Percutaneous Approach (ICD-10-PCS; principal; 2019-10-23)
DX: R55 Syncope and collapse (principal); R00.1 Bradycardia, unspecified; R11.2 Nausea with vomiting, unspecified; R42 Dizziness and giddiness; Z87.891 Personal history of nicotine dependence
CPT/HCPCS: 36415; 70450-TC; 71045-TC-FY; 76700-TC; 80048; 80053; 81003; 82550; 82962; 83690; 83880; 84484; 85025; 85379; 93005; 93010; 93306-TC; 96360; 97116-GP; 97161-GP; 99285-25; G0378; U0003

== ENCOUNTER 2020-03-13 15:56 | Emergency (ER) | payer OTHER | END 2020-03-13 18:53 | disposition home or self-care (01) | LOC: JVIRT 15:56 | DX: Z03.818 Encounter for observation for suspected exposure to other biological agents ruled out (principal) | CPT/HCPCS: C9803; G2012-GT; U0003 ==

== ENCOUNTER 2021-08-01 16:27 | Emergency (ER) | payer OTHER ==
[2021-08-01 16:40] VITALS: TEMP 97.7; BMI 25.0
[2021-08-01 19:34] VITALS: PULSE 69
[2021-08-01 19:56] VITALS: BP 129/93
== END 2021-08-01 19:58 | disposition home or self-care (01) ==
LOC: JER 16:27
DX: R42 Dizziness and giddiness (principal); R51.9 Headache, unspecified
CPT/HCPCS: 70450-TC; 99284-25

== ENCOUNTER 2022-05-28 12:29 | Emergency (ER) | payer OTHER ==
[2022-05-28 12:52] VITALS: RESP 18; TEMP 97.7; BMI 23.4
[2022-05-28] MEDS ORDERED: ACETAMINOPHEN 1000 MG/100 ML BAG IVPB ONE (14:16)
[2022-05-28] MEDS ORDERED: METOCLOPRAMIDE HCL INJECTION 10 MG/2 ML VIAL IVPB ONE (14:16)
[2022-05-28] MEDS ORDERED: LACTATED RINGERS SOLUTION 1,000 ML/1,000 ML INFUS.BAG IV SCH (14:30)
[2022-05-28] MEDS ORDERED: ACETAMINOPHEN INJECTION 100 ML IVPB ONE (14:35)
[2022-05-28] MEDS ORDERED: METOCLOPRAMIDE HCL INJECTION 10 MG/2 ML VIAL ONE (14:35)
[2022-05-28 15:16] LABS: BASO % 0.6 % (0-2.0); EOS % 1.1 % (0-4.5); HEMATOCRIT 38.2 % (32.4-45.2); HEMOGLOBIN 12.5 GM/dL (10.7-15.3); LYMPH % 28.6 % (8-40); MCH 27.1 pg (25.7-33.7); MCHC 32.7 g/dl (32.0-36.0); MEAN PLT VOLUME 10.8 fl (7.5-11.1); MONO % 5.4 % (3.8-10.2); NEUT % 64.3 % (42.8-82.8); PLATELET COUNT 290 10^3/uL (134-434); RDW 15.2 % (11.6-15.6); WHITE BLOOD COUNT 7.6 K/mm3 (4.0-10.0)
[2022-05-28 15:38] LABS: CALCIUM 9.6 mg/dL (8.5-10.1)
[2022-05-28 15:40] LABS: ALBUMIN 3.8 g/dl (3.4-5.0)
[2022-05-28 15:42] LABS: CREATININE 0.8 mg/dL (0.55-1.3)
[2022-05-28 15:43] LABS: BILIRUBIN,TOTAL 0.3 mg/dL (0.2-1); TOT PROT 8.1 g/dl (6.4-8.2)
[2022-05-28 17:05] VITALS: BP 131/93; PULSE 72
== END 2022-05-28 17:24 | disposition home or self-care (01) ==
LOC: JER 12:29
PROC: 3E0333Z Introduction of Anti-inflammatory into Peripheral Vein, Percutaneous Approach (ICD-10-PCS; principal; 2022-05-28)
PROC: 3E033GC Introduction of Other Therapeutic Substance into Peripheral Vein, Percutaneous Approach (ICD-10-PCS; 2022-05-28)
DX: R51.9 Headache, unspecified (principal); R11.0 Nausea
CPT/HCPCS: 0241U-QW; 36415; 70450-TC; 80053; 84484; 85025; 93005; 93010; 99285-25